=== PATIENT | female | born 1960 | race Caucasian/White ===

== ENCOUNTER 2024-12-18 08:51 | Outpatient (CLI) | payer BC, SELFPAY ==
--- NOTE | ~2024-12-18 | MMUS_ITS ---
EXAMINATION: MM diagnostic joy BI w ricardo, US breast LT limited HISTORY: Left breast lump TECHNIQUE: 3-D tomosynthesis images of the breasts were performed and synthetic 2-D images were gener ated. CAD analysis was submitted and interpreted. High resolution limited left breast ultrasound was performed. COMPARISON: None BREAST PARENCHYMAL COMPOSITION: There are scattered areas of fibroglandular density. BREAST PARENCHYMAL COMPOSITION:Not Dense. There are scattered areas of fibroglandular density. FINDINGS: MAMMOGRAPHIC FINDINGS: There is a 12 mm spiculated/irregular mass at the upper, outer left breast which persists on spot com pression views. No parenchymal abnormality of the right breast. No suspicious microcalcifications. ULTRASOUND: At the 2:00 position left breast, 8 cm from the nipple, there is an 8 x 6 x 10 mm irregular hypoechoi c mass, taller than wide, with ill-defined borders. There is focal internal color flow. IMPRESSION: 8 x 6 x 10 mm irregular hypoechoic mass at the 2:00 position left breast, which correlates with the mammographic abnormality as well as the area of palpable concern. This lesion is highly suspicious. U ltrasound-guided biopsy required to establish a histologic diagnosis. BI-RADS category 5, highly suggestive of malignancy. Reviewed, dictated and finalized at location M. IMPRESSION: 8 x 6 x 10 mm irregular hypoechoic mass at the 2:00 position left breast, whic h correlates with the mammographic abnormality as well as the area of palpable concern. This lesion is highly suspicious. Ultrasound-guided biopsy required to establish a histologic diagnosis. BI-RADS category 5, highly suggestive of malignancy.
== END 2024-12-18 08:52 | disposition home or self-care (01) ==
LOC: CHSIMG 08:56
DX: N63.21 Unspecified lump in the left breast, upper outer quadrant (principal); R92.8 Other abnormal and inconclusive findings on diagnostic imaging of breast
CPT/HCPCS: 76642; 77062; 77066; G0279

== ENCOUNTER 2025-01-15 09:08 | Outpatient (CLI) | payer BC, SELFPAY ==
--- NOTE | ~2025-01-15 | MMUS_ITS ---
MM post biopsy diagnostic LT, US breast biopsy LT w image EXAMINATION: US GUIDED NEEDLE BIOPSY WITH V ACKARLAM ASSISTANCE DATE: 01/15/2025 10:47 CDT INDICATION: Left breast mass seen on prior ultrasound. Ultrasound-guided core biopsy is requested to evaluate for malignancy. BREAST PARENCHYMAL COMPOSITION: Not dense: There are scattered areas of fibroglandular density. TECHNIQUE AND FINDINGS: The risks and potential benefits of the procedure were discussed with the patient, and written inform ed consent was obtained. After sterile preparation of the left breast, 1% lidocaine was utilized for local anesthesia. 1% lidocaine with epinephrine was used for deep anesthesia. A 10G vacuum-assisted biopsy gun needle was advanced through to the outer edge of the region of inter est from a superior lateral approach utilizing sonographic guidance. A total of 4 tissue core sample s were obtained through the lesion. An Inrad tissue marker clip was then placed at the biopsy site. Hemostasis was achieved. The patient tolerated procedure well and there was no evidence of immediate complication. The patien t was given verbal instructions partly is from the department. Left breast mammograms to document ti ssue marker clip placement. The tissue samples were submitted to surgical pathology for histologic an alysis. IMPRESSION: 1. Successful ultrasound-guided vacuum-assisted biopsy of left breast mass with post procedure mammo gram for marker placement. Please refer to pathology report for histologic analysis. Reviewed, dictated and finalized at location B. IMPRESSION: 1. Successful ultrasound-guided vacuum-assisted biopsy of left breast mass wit h post procedure mammogram for marker placement. Please refer to pathology repo rt for histologic analysis.
--- NOTE | 2025-01-15 10:29 | S_PTH ---
PATIENT: Estefanía Chávez LOC: [facility] U#:[id number] AGE/SX: 64/F ROOM: RE01/15/[address]: Kylah Garcia, ESTRELLA : 1960 BED: DIS: 01/15/2025 SPEC #: [id number] RECD: 01/15/25 13:04 STATUS: JATIN LOCK #: [id number] DONI: 01/15/25 10:[address]: Radha,Kylah León DEPT: [facility] Surgical RECD BY: Arlen Mirza Tissues: A - Breast Biopsy Procedures: Hematoxylin and Eosin Stain Gross and Microscopic Level 4
== END 2025-01-15 09:09 | disposition home or self-care (01) ==
PROVIDERS: Visit Provider Nurse Practitioner Family
DX: N63.21 Unspecified lump in the left breast, upper outer quadrant (principal)
CPT/HCPCS: 19083; 77065; 88305; A4648